=== PATIENT | female | born 1940 | race Caucasian/White ===

== ENCOUNTER 2016-08-29 06:03 | Emergency (ER) | payer MEDICARE, OTHER ==
[~2016-08-29 06:03] MED LIST: BACT800T5 PO; CLIN1CAP6 PO; ESCI20TA PO; ESTR.625 PO; HYDR-3580 PO; LORA1TAB PO; NEXI40CA PO; POTA10IN2 PO; ROBA750T3 PO; TELM1TAB56 PO; VITA200017 PO
--- NOTE | 2016-08-29 06:13 | PD ---
HPI Chief Complaint: respiratory Time Seen by Provider: 06:07 Travel History International Travel<30 days: No Contact w/Intl Traveler<30days: No Traveled to known affect area: No History of Present Illness HPI 75-year-old female complains of fever and coughing. Patient states that the cough started about week ago. Patient states that she has been running fever for past few days. Patient states the cough is productive. Patient denies any chest pain. Patient states that she has shortness of breath. Patient denies abdominal pain. Patient denies any nausea vomiting diarrhea. Patient states that she used her 's albuterol treatment without Cough Relief. PFSH Past Medical History Arthritis: Yes (RA) Asthma: No Blood Disorders: No Anxiety: Yes Depression: Yes Heart Rhythm Problems: No Cardiovascular Problems: Yes High Cholesterol: No Chemotherapy: No Chest Pain: No Congestive Heart Failure: No COPD: No Cerebrovascular Accident: No Diabetes: No Diminished Hearing: No Fibromyalgia: Yes Gastrointestinal Disorders: Yes (NAUSEA AND VOMITING TIMES ONE DAY) GERD: Yes Glaucoma: No Genitourinary: No Headaches: Yes Hepatitis: No Hiatal Hernia: No Hypertension: Yes Immune Disorder: No Implanted Vascular Access Dvce: No Musculoskeletal: Yes (FIBROMYALGIA, OSTEOPOROSIS) Neurologic: Yes Psychiatric: Yes Reproductive: No Migraines: Yes Radiation Therapy: No Renal Failure: No Seizures: No Sleep Apnea: No Thyroid Disease: No Ulcer: No Past Surgical History Abdominal Surgery: Yes (HYSTERECTOMY CHOLESTECTOMY) Appendectomy: Yes Body Medical Devices: FIBERMYALGIA, OSTEOPOROSIS Cardiac Surgery: No Cholecystectomy: Yes Eye Surgery: Yes (BILATERAL EYES cataract surgery) Genitourinary Surgery: No Gynecologic Surgery: Yes (bladder tuck) Hysterectomy: Yes Neurologic Surgery: No Pacemaker: No Thoracic Surgery: No Other Surgery: Yes Social History Alcohol Use: No Tobacco Use: No Substance Use: No Allergies-Medications (Allergen,Severity, Reaction): Coded Allergies: Penicillin (Verified Allergy, Severe, HIVES, 04/27/16) Reported Meds & Prescriptions Reported Meds & Active Scripts Active Robaxin-750 (Methocarbamol) 750 Mg Tab 750 Mg PO QID PRN FOR PAIN Clindamycin Hcl (Clindamycin HCl) 300 Mg Cap 300 Mg PO Q6HR 7 Days Bactrim DS (Sulfamethoxazole-Trimethoprim DS) 1 Tab Tab 1 Tab PO Q12HR 7 Days Reported Vitamin D3 Super Strength (Cholecalciferol) 2 000 Tab 5,000 Unit PO DAILY Hydrocodone/Acetaminophen 7.5 mg/325 mg 1 Tab 1 Tab PO Q6H Escitalopram Oxalate 20 Mg Tab 20 Mg PO DAILY Micardis (Telmisartan) 80 Mg Tab 80 Mg PO DAILY Lorazepam 1 Mg Tab 1 Mg PO BID Nexium (Esomeprazole Magnesium) 40 Mg Cap 40 Mg PO DAILY Premarin (Estrogens Conjugated) 0.625 Mg Tab 0.625 Mg PO DAILY Potassium Chloride ER 10 meq (Potassium Chloride) 10 Meq Cap 10 Meq PO DAILY Review of Systems General / Constitutional: Positive: Fever Eyes: No: Visual changes HENT: No: Headaches Cardiovascular: No: Chest Pain or Discomfort Respiratory: Positive: Cough, No: Shortness of Breath Gastrointestinal: No: Abdominal Pain Genitourinary: No: Dysuria Musculoskeletal: No: Pain Skin: No Rash Neurologic: No: Weakness Psychiatric: No: Depression Endocrine: No: Polydipsia Hematologic/Lymphatic: No: Easy Bruising Physical Exam Narrative GENERAL: Well-nourished, well-developed patient. SKIN: Warm and dry. HEAD: Normocephalic. EYES: No scleral icterus. No injection or drainage. NECK: Supple, trachea midline. No JVD or lymphadenopathy. CARDIOVASCULAR: Mild tachycardia rate and rhythm without murmurs, gallops, or rubs. RESPIRATORY: Breath sounds equal bilaterally. No accessory muscle use. Few rhonchi at the bases. GASTROINTESTINAL: Abdomen soft, non-tender, nondistended. MUSCULOSKELETAL: No cyanosis, or edema. BACK: Nontender without obvious deformity. No CVA tenderness. Neurologic exam normal. MDM Medical Decision Making Medical Screen Exam Complete: Yes Emergency Medical Condition: Yes Differential Diagnosis Differential diagnosis including viral syndrome, bronchitis, pneumonia, PE, pneumothorax, CHF. Narrative Course 75-year-old female with fever persistent cough. Deacon Doe MD Aug 29, 2016 06:13
[2016-08-29 06:15] VITALS: BP 105/54; PULSE 115; RESP 16; TEMP 98.5; O2SAT 98
[2016-08-29 06:18] VITALS: PULSE 117; RESP 18; O2SAT 98
[2016-08-29] MEDS ORDERED: LORA1TAB12 PO (06:38)
[2016-08-29] MEDS ORDERED: NEXI40CA PO (06:38)
[2016-08-29] MEDS ORDERED: POTA8TAB PO (06:38)
[2016-08-29 06:42] LABS: AUTOMATED NEUTROPHIL # 8.7 TH/MM3 (1.8-7.7); BASOPHIL # 0.1 TH/MM3 (0-0.2); BASOPHIL % 0.7 % (0.0-2.0); EOSINOPHIL # 0.5 TH/MM3 (0-0.4); EOSINOPHIL % 3.3 % (0.0-4.0); HEMATOCRIT 35.8 % (35.0-46.0); HEMO FLAGS DIFF FINAL; LYMPH % 25.1 % (9.0-44.0); LYMPHOCYTE # 3.5 TH/MM3 (1.0-4.8); MEAN CELL VOLUME 81.8 FL (80.0-100.0); MEAN CORPUSCULAR HEMOGLOBIN 27.4 PG (27.0-34.0); MEAN CORPUSCULAR HGB CONC 33.5 % (32.0-36.0); MONO % 9.2 % (0.0-8.0); NEUT % 61.7 % (16.0-70.0); PLATELET COUNT 247 TH/MM3 (150-450); RED BLOOD COUNT 4.38 MIL/MM3 (4.00-5.30); RED CELL DISTRIBUTION WIDTH 13.3 % (11.6-17.2); WHITE BLOOD COUNT 14.1 TH/MM3 (4.0-11.0)
[2016-08-29] MEDS ORDERED: RESP: ALBUTEROL 2.5 MG/IPRATROPIUM 0.5 MG NEB (SCH) INH ONE (07:00)
--- NOTE | 2016-08-29 07:06 | RADRPT ---
EXAM DATE/TIME: 08/29/2016 06:36 [facility] COMPARISON: CHEST SINGLE AP, November 24, 2015, 1:00. INDICATIONS : Fever and cough. MEDICAL HISTORY : Hypertension. SURGICAL HISTORY : None. ENCOUNTER: Initial ACUITY: 1 day PAIN SCORE: 0/10 LOCATION: Bilateral chest FINDINGS: The heart and mediastinal structures are normal. The pulmonary vascular pattern is normal. The lungs are clear. CONCLUSION: No acute cardiopulmonary disease. Efrain Farnsworth MD on August 29, 2016 at 7:03 Board Certified Radiologist. This report was verified electronically.
[2016-08-29 07:11] LABS: ALKALINE PHOSPHATASE 102 U/L (45-117); ALT (GPT) 19 U/L (10-53); ANION GAP 13 MEQ/L (5-15); AST (GOT) 21 U/L (15-37); BICARBONATE 22.1 MEQ/L (21.0-32.0); CHLORIDE 103 MEQ/L (98-107); GLOMERULAR FILTRATION RATE 23 ML/MIN (>89); POTASSIUM 4.4 MEQ/L (3.5-5.1); SODIUM (NA) 138 MEQ/L (136-145); TOTAL BILIRUBIN ADULT 0.3 MG/DL (0.2-1.0)
[2016-08-29 07:13] LABS: BLOOD UREA NITROGEN 32 MG/DL (7-18)
[2016-08-29] MEDS: RESP: ALBUTEROL 2.5 MG/3 ML NEB (SCH) INH (07:26)
[2016-08-29] MEDS ORDERED: guaiFENesin/CODEINE SYRUP 200 MG/20 MG/10 ML CUP PO ONE (07:30)
[2016-08-29 08:01] VITALS: BP 105/56; PULSE 102; RESP 20; O2SAT 98
[2016-08-29] MEDS ORDERED: CLAR10CA3 PO (08:27)
[2016-08-29] MEDS ORDERED: GUAI100S5 PO (08:27)
[2016-08-29] MEDS ORDERED: ZITHTAB PO (08:27)
--- NOTE | 2016-08-29 08:33 | PD ---
Physical Exam Date Seen by Provider: Aug 29, 2016 Time Seen by Provider: 08:15 Narrative The patient was signed out to me by Dr. Doe at 7 AM. I was the physician replacing Dr. Doe. The patient had labs and x-rays pending. Chest x-ray shows no evidence of acute process. Labs showed white count of 14,000 with no left shift. Her creatinine was 2.1 which is close to her baseline. The patient was given nebulizer treatments 3 first with DuoNeb. She is also given 5 cc of cough syrup with codeine. On reexamination, patient's lung sounds are clear. She does have some mild rhonchi in the upper airways. Data Data Last Documented VS Vital Signs Date Time Temp Pulse Resp B/P Pulse Ox O2 Delivery O2 Flow Rate FiO2 08/29/16 06:18 117 18 98 08/29/16 06:15 98.5 105/54 Orders Complete Blood Count With Diff (08/29/16 06:07) Comprehensive Metabolic Panel (08/29/16 06:07) Blood Culture (08/29/16 06:07) Urinalysis - C+S If Indicated (08/29/16 06:07) Influenzae A/B Antigen (08/29/16 06:07) Chest, Single Ap (08/29/16 06:07) Iv Access Insert/Monitor (08/29/16 06:07) Ecg Monitoring (08/29/16 06:07) Oximetry (08/29/16 06:07) Albuterol-Ipratropium Neb (Duoneb Neb) (08/29/16 07:00) Albuterol Neb (Albuterol Neb) (08/29/16 07:00) Guaifen-Cod 200-20 Mg/10ml Liq (Robituss (08/29/16 07:30) Labs Laboratory Tests Test 08/29/16 06:23 White Blood Count 14.1 TH/MM3 Red Blood Count 4.38 MIL/MM3 Hemoglobin 12.0 GM/DL Hematocrit 35.8 % Mean Corpuscular Volume 81.8 FL Mean Corpuscular Hemoglobin 27.4 PG Mean Corpuscular Hemoglobin 33.5 % Concent Red Cell Distribution Width 13.3 % Platelet Count 247 TH/MM3 Mean Platelet Volume 9.3 FL Neutrophils (%) (Auto) 61.7 % Lymphocytes (%) (Auto) 25.1 % Monocytes (%) (Auto) 9.2 % Eosinophils (%) (Auto) 3.3 % Basophils (%) (Auto) 0.7 % Neutrophils # (Auto) 8.7 TH/MM3 Lymphocytes # (Auto) 3.5 TH/MM3 Monocytes # (Auto) 1.3 TH/MM3 Eosinophils # (Auto) 0.5 TH/MM3 Basophils # (Auto) 0.1 TH/MM3 CBC Comment DIFF FINAL Differential Comment Sodium Level 138 MEQ/L Potassium Level 4.4 MEQ/L Chloride Level 103 MEQ/L Carbon Dioxide Level 22.1 MEQ/L Anion Gap 13 MEQ/L Blood Urea Nitrogen 32 MG/DL Creatinine 2.11 MG/DL Estimat Glomerular Filtration 23 ML/MIN Rate Random Glucose 104 MG/DL Calcium Level 8.8 MG/DL Total Bilirubin 0.3 MG/DL Aspartate Amino Transf 21 U/L (AST/SGOT) Alanine Aminotransferase 19 U/L (ALT/SGPT) Alkaline Phosphatase 102 U/L Total Protein 7.4 GM/DL Albumin 3.2 GM/DL [facility] Medical Record Reviewed: Yes Supervised Visit with DIONI: No Narrative Course 75-year-old female who presents with cough 2 days. Patient is afebrile. I discussed that this is likely bronchitis however given her elevated white count 14,000, we will treat her with a Z-Abelardo. We also gave her a prescription for Claritin as she has postnasal drip. I've written her prescription for guaifenesin with codeine. Diagnosis Primary Impression: Bronchitis Additional Impression: History of hypertension Patient Instructions: Narcotic given in the ED Med/Other Pt SpecificInfo: Prescription(s) given Scripts Loratadine (Claritin)10 Mg Cap10 Mg PO DAILY #20 CAP Ref 0 Prov:Ulises Allen MD 08/29/16 Guaifenesin-Codeine Liq 100-10 Mg/5 Ml Soln5 Ml PO Q6H PRN (COUGH) #1 BOTTLE Ref 0 Prov:Ulises Allen MD 08/29/16 Azithromycin (Zithromax Z-Abelardo)250 Mg Lcae534 Mg PO DIRECTED #1 DSPK Ref 0 500 MG (2 tabs) day 1, then 1 tab days 2-5. Prov:Ulises Allen MD 08/29/16 Disposition: 01 DISCHARGE HOME Condition: Stable Ulises Allen MD Aug 29, 2016 08:33
[2016-08-29 09:18] VITALS: BP 107/51; TEMP 98.6
== END 2016-08-29 09:20 | disposition home or self-care (01) ==
LOC: NEPC 06:03
DX: J40 Bronchitis, not specified as acute or chronic (principal); I10 Essential (primary) hypertension; R09.82 Postnasal drip; Z87.39 Personal history of other diseases of the musculoskeletal system and connective tissue; Z86.59 Personal history of other mental and behavioral disorders; Z86.79 Personal history of other diseases of the circulatory system; Z87.19 Personal history of other diseases of the digestive system; Z86.69 Personal history of other diseases of the nervous system and sense organs
CPT/HCPCS: 71010; 80053; 85025; 87040; 87804; 94640; 94664; 99284; J7613

== ENCOUNTER → 2016-11-10 | Outpatient (CLI) | payer MEDICARE, OTHER ==
[~2016-11-10] MED LIST changes: -BACT800T5 PO; +CLAR10CA3 PO; -CLIN1CAP6 PO; -ESCI20TA PO; -ESTR.625 PO; +GUAI100S5 PO; -HYDR-3580 PO; -LORA1TAB PO; +LORA1TAB12 PO; -POTA10IN2 PO; +POTA8TAB PO; -ROBA750T3 PO; -TELM1TAB56 PO; -VITA200017 PO; +ZITHTAB PO
[2016-11-10 10:29] LABS: AUTOMATED NEUTROPHIL # 4.5 TH/MM3 (1.8-7.7); BASOPHIL # 0.1 TH/MM3 (0-0.2); BASOPHIL % 1.2 % (0.0-2.0); EOSINOPHIL # 0.5 TH/MM3 (0-0.4); EOSINOPHIL % 5.2 % (0.0-4.0); HEMATOCRIT 36.9 % (35.0-46.0); HEMO FLAGS DIFF FINAL; LYMPH % 42.4 % (9.0-44.0); LYMPHOCYTE # 4.3 TH/MM3 (1.0-4.8); MEAN CELL VOLUME 82.9 FL (80.0-100.0); MEAN CORPUSCULAR HEMOGLOBIN 26.9 PG (27.0-34.0); MEAN CORPUSCULAR HGB CONC 32.5 % (32.0-36.0); MONO % 6.8 % (0.0-8.0); NEUT % 44.4 % (16.0-70.0); PLATELET COUNT 203 TH/MM3 (150-450); RED BLOOD COUNT 4.45 MIL/MM3 (4.00-5.30); RED CELL DISTRIBUTION WIDTH 14.1 % (11.6-17.2); WHITE BLOOD COUNT 10.1 TH/MM3 (4.0-11.0)
[2016-11-10 10:54] LABS: ALT (GPT) 18 U/L (10-53); ANION GAP 8 MEQ/L (5-15); AST (GOT) 16 U/L (15-37); BICARBONATE 27.9 MEQ/L (21.0-32.0); BLOOD UREA NITROGEN 26 MG/DL (7-18); CHLORIDE 103 MEQ/L (98-107); GLOMERULAR FILTRATION RATE 37 ML/MIN (>89); GLUCOSE,FASTING 94 MG/DL (74-99); SODIUM (NA) 139 MEQ/L (136-145)
[2016-11-10 11:04] LABS: ALKALINE PHOSPHATASE 78 U/L (45-117); LDL CHOLESTEROL 84 MG/DL (0-99); TOTAL BILIRUBIN ADULT 0.2 MG/DL (0.2-1.0)
[2016-11-10 11:11] LABS: BACTERIA, URINE RARE /hpf; BLOOD, URINE NEG (NEG); GLUCOSE,URINE NEG (NEG); KETONE, URINE NEG (NEG); MUCUS URINE FEW /lpf (OCC); NITRITE,URINE NEG (NEG); SQUAMOUS EPITHELIAL CELL URINE 2 /hpf (0-5); URINE COLOR YELLOW (YELLW/STRAW)
== END ==
LOC: PLAB 08:19
PROVIDERS: ATTEND General Practice
DX: I10 Essential (primary) hypertension (principal)
CPT/HCPCS: 36415; 80053; 80061; 81001; 84443; 85025

== ENCOUNTER 2017-03-14 14:10 | Emergency (ER) | payer MEDICARE, OTHER ==
[~2017-03-14] VITALS: Ht 157.5 cm; Wt 70.0 kg
[2017-03-14 14:12] VITALS: BP 147/80; PULSE 99; RESP 16; TEMP 98.4; O2SAT 98
--- NOTE | 2017-03-14 15:15 | PD ---
HPI Chief Complaint: ENT Complaint Time Seen by Provider: 15:09 Travel History International Travel<30 days: No Contact w/Intl Traveler<30days: No Traveled to known affect area: No History of Present Illness HPI 76-year-old female presents to emergency department for evaluation of cough and chest congestion, left-sided throat and ear pain. Pain with swallowing. Symptoms worsening over the last 3-4 days. Denies any fever or chills. No chest pain. Mild nausea without vomiting. Episode of diarrhea. Patient states her ear pain is radiating to the left side of her head. Denies any focal deficits or weakness. Has no other symptoms to report. PFSH Past Medical History Hx Anticoagulant Therapy: No Arthritis: Yes (RA) Asthma: No Blood Disorders: No Anxiety: Yes Depression: Yes Heart Rhythm Problems: No Cardiovascular Problems: No High Cholesterol: No Chemotherapy: No Chest Pain: No Congestive Heart Failure: No COPD: No Cerebrovascular Accident: No Diabetes: No Diminished Hearing: No Fibromyalgia: Yes Gastrointestinal Disorders: Yes (NAUSEA AND VOMITING TIMES ONE DAY) GERD: Yes Glaucoma: No Genitourinary: No Headaches: Yes Hepatitis: No Hiatal Hernia: No Hypertension: Yes Immune Disorder: No Implanted Vascular Access Dvce: No Musculoskeletal: Yes (FIBROMYALGIA, OSTEOPOROSIS) Neurologic: Yes Psychiatric: Yes Reproductive: No Respiratory: Yes (ASTHMA) Migraines: Yes Radiation Therapy: No Renal Failure: No Seizures: No Sleep Apnea: No Thyroid Disease: No Ulcer: No ?: Not Past Surgical History Abdominal Surgery: Yes (HYSTERECTOMY CHOLESTECTOMY) Appendectomy: Yes Body Medical Devices: FIBERMYALGIA, OSTEOPOROSIS Cardiac Surgery: No Cholecystectomy: Yes Eye Surgery: Yes (BILATERAL EYES cataract surgery) Genitourinary Surgery: No Gynecologic Surgery: Yes (bladder tuck) Hysterectomy: Yes Neurologic Surgery: No Pacemaker: No Thoracic Surgery: No Other Surgery: Yes Social History Alcohol Use: No Tobacco Use: No Substance Use: No Allergies-Medications (Allergen,Severity, Reaction): Coded Allergies: penicillin G (Verified Allergy, Severe, HIVES, 03/14/17) Reported Meds & Prescriptions Reported Meds & Active Scripts Active Medrol Dosepak (Methylprednisolone) 4 Mg Dspk 4 Mg PO DIRECTED Per Pharmacist direction Doxycycline Hyclate 100 Mg Cap 100 Mg PO BID Claritin (Loratadine) 10 Mg Cap 10 Mg PO DAILY Reported Lorazepam 1 Mg Tab 1 Mg PO BID PRN Potassium Chloride ER (Potassium Chloride) 8 Meq Tab 8 Meq PO DAILY Nexium (Esomeprazole DR) 40 Mg Capdr 40 Mg PO DAILY Review of Systems Except as stated in HPI: all other systems reviewed are Neg Physical Exam Narrative GENERAL: Well-nourished, well-developed female patient in no acute distress SKIN: Focused skin assessment warm/dry. HEAD: Normocephalic. Atraumatic no mastoid tenderness EARS: Bilateral pinnae and external canals appear within normal limits. Left tympanic membranes is dull without erythema, dullness or perforation. Right tympanic membrane is within normal limits. EYES: No scleral icterus. No injection or drainage. ENT: Mucosa pink and moist. Pharynx with erythema without exudate.. No uvular edema. No uvular, palatal, or tonsillar deviation. Airway patent. Nasal turbinates inflamed without nasal blood, purulent drainage or septal hematoma. NECK: Supple, trachea midline. Left anterior cervical lymphadenopathy. CARDIOVASCULAR: Regular rate and rhythm without murmurs, gallops, or rubs. RESPIRATORY: Breath sounds diminished, coarse equal bilaterally. No accessory muscle use. GASTROINTESTINAL: Abdomen soft, non-tender, nondistended. No rebound tenderness. No guarding. MUSCULOSKELETAL: No cyanosis, or edema. BACK: Nontender without obvious deformity. No CVA tenderness. Data Data Last Documented VS Vital Signs Date Time Temp Pulse Resp B/P (MAP) Pulse Ox O2 Delivery O2 Flow Rate FiO2 03/14/17 17:43 85 15 94 03/14/17 15:41 21 03/14/17 14:12 98.4 Orders Orders Dexamethasone Inj (Decadron Inj) (03/14/17 15:30) Chest, Single Ap (03/14/17 ) Albuterol-Ipratropium Neb (Duoneb Neb) (03/14/17 15:30) MDM Medical Decision Making Medical Screen Exam Complete: Yes Emergency Medical Condition: Yes Medical Record Reviewed: Yes Differential Diagnosis Viral syndrome versus sinusitis versus pharyngitis versus otitis media Narrative Course 76 year-old female presents to emergency department for evaluation. Patient appears without distress. Chest x-rays without acute cardiopulmonary disease. History and exam are consistent with a sinusitis and bronchitis. Patient was given Decadron here in the emergency department. Upon reassessment, she verbalizes improvement in her symptoms but not complete resolution. Patient will be discharged to follow-up her primary care provider. She agrees to return immediately with any acute worsening symptoms. Diagnosis Primary Impression: Sinusitis Qualified Codes: J01.00 - Acute maxillary sinusitis, unspecified Additional Impression: Bronchitis Referrals: Primary Care Physician Patient Instructions: Acute Bronchitis (ED), General Instructions, Sinusitis ( ED) Additional Instructions: Humidified air may help to alleviate symptoms Zkcw-[id number] antihistamine such as Benadryl or Zyrtec as directed on the package may also help to alleviate her symptoms Follow-up with a primary care provider Return immediately with any acute worsening of symptoms Med/Other Pt SpecificInfo: Prescription(s) given Scripts Methylprednisolone Dosepak (Medrol Dosepak) 4 Mg Dspk 4 MG PO DIRECTED, #1 DSPK 0 Refills Per Pharmacist direction Prov: Casandra Pichardo 03/14/17 Doxycycline Hyclate (Doxycycline Hyclate) 100 Mg Cap 100 MG PO BID for Infection, #20 CAP 0 Refills Prov: Casandra Pichardo 03/14/17 Disposition: 01 DISCHARGE HOME Condition: Stable Casandra Pichardo Mar 14, 2017 15:14
[2017-03-14] MEDS ORDERED: DEXAMETHASONE SOD PHOS 20 MG/5 ML VIAL IM ONE (15:30)
[2017-03-14] MEDS ORDERED: RESP: ALBUTEROL 2.5 MG/IPRATROPIUM 0.5 MG NEB (SCH) NEB ONE (15:30)
[2017-03-14 15:41] VITALS: O2SAT 95
--- NOTE | 2017-03-14 16:18 | RADRPT ---
EXAM DATE/TIME: 03/14/2017 15:31 [facility] COMPARISON: CHEST SINGLE AP, August 29, 2016, 6:36. INDICATIONS : Chest pain and shortness of breath. MEDICAL HISTORY : Hypertension. SURGICAL HISTORY : Cholecystectomy. Hysterectomy. ENCOUNTER: Initial ACUITY: 1 day PAIN SCORE: 6/10 LOCATION: Bilateral chest FINDINGS: A single view of the chest demonstrates the lungs to be symmetrically aerated without evidence of mas s, infiltrate or effusion. The cardiomediastinal contours are unremarkable. Osseous structures are intact. CONCLUSION: No acute disease. Efrain Farnsworth MD on March 14, 2017 at 16:16 Board Certified Radiologist. This report was verified electronically.
[2017-03-14] MEDS ORDERED: MEDR4PAK PO (16:33)
[2017-03-14] MEDS ORDERED: DOXY100C PO (16:33)
== END 2017-03-14 17:45 | disposition home or self-care (01) ==
LOC: NEPD 14:10
DX: J40 Bronchitis, not specified as acute or chronic (principal); R11.0 Nausea; R19.7 Diarrhea, unspecified; M06.9 Rheumatoid arthritis, unspecified; F41.9 Anxiety disorder, unspecified; F32.9 Major depressive disorder, single episode, unspecified; M79.7 Fibromyalgia; K21.9 Gastro-esophageal reflux disease without esophagitis; I10 Essential (primary) hypertension
CPT/HCPCS: 71010; 94664; 96372; 99284; J1100

== ENCOUNTER 2017-03-29 10:44 | Emergency (ER) | payer MEDICARE, OTHER ==
[~2017-03-29] VITALS: Ht 157.5 cm; Wt 72.5 kg
[~2017-03-29 10:44] MED LIST changes: +DOXY100C PO; -GUAI100S5 PO; +MEDR4PAK PO; -ZITHTAB PO
[2017-03-29 10:45] VITALS: BP 162/84; PULSE 83; RESP 18; TEMP 98.5; O2SAT 94
[2017-03-29] MEDS ORDERED: POTA-243 PO (11:02)
[2017-03-29] MEDS ORDERED: ESTR.625 PO (11:02)
[2017-03-29] MEDS ORDERED: LORA1TAB12 PO (11:02)
[2017-03-29] MEDS ORDERED: MECL12.574 PO (11:02)
[2017-03-29] MEDS ORDERED: ESCI20TA PO (11:02)
[2017-03-29] MEDS ORDERED: MICA80TA2 PO (11:02)
[2017-03-29] MEDS ORDERED: NEXI40CA PO (11:02)
[2017-03-29] MEDS ORDERED: SODIUM CHLOR 0.9% 1000 ML INJ 1,000 ML IV ONE (11:05)
[2017-03-29 11:07] VITALS: BP 150/80; PULSE 76; RESP 20; O2SAT 94
--- NOTE | 2017-03-29 11:09 | PD ---
HPI Chief Complaint: Headache Time Seen by Provider: 10:56 Travel History International Travel<30 days: No Contact w/Intl Traveler<30days: No History of Present Illness HPI The patient is a 76-year-old female who presents to the emergency department via private vehicle for headache after a fall. The patient states she has a history of fibromyalgia with multiple falls and is scheduled to see a neurologist in several days, Dr. Mcmanus. The patient states she fell 2 days ago struck the left aspect of her head, then fell yesterday and struck the left aspect of her head against a cabinet. She denies any loss of consciousness, nausea, vomiting, or focal deficits. She does complain of a left-sided headache. She denies taking any anticoagulants including aspirin. The patient called her primary physician earlier today, Dr. Dheeraj Goldman, who referred her to the emergency department for CT the brain to rule out a "blood clot "in the brain. She denies any cavity chest pain, shortness breath, or abdominal pain. Symptoms are moderate, exacerbated after falling, and there are no current alleviating factors. PFSH Past Medical History Hx Anticoagulant Therapy: No Arthritis: Yes (RA) Asthma: No Blood Disorders: No Anxiety: Yes Depression: Yes Heart Rhythm Problems: No Cardiovascular Problems: No High Cholesterol: No Chemotherapy: No Chest Pain: No Congestive Heart Failure: No COPD: No Cerebrovascular Accident: No Diabetes: No Diminished Hearing: No Fibromyalgia: Yes Gastrointestinal Disorders: Yes (NAUSEA AND VOMITING TIMES ONE DAY) GERD: Yes Glaucoma: No Genitourinary: No Headaches: Yes Hepatitis: No Hiatal Hernia: No Hypertension: Yes Immune Disorder: No Implanted Vascular Access Dvce: No Musculoskeletal: Yes (FIBROMYALGIA, OSTEOPOROSIS) Neurologic: Yes Psychiatric: Yes Reproductive: No Respiratory: Yes (ASTHMA) Migraines: Yes Radiation Therapy: No Renal Failure: No Seizures: No Sleep Apnea: No Thyroid Disease: No Ulcer: No Past Surgical History Abdominal Surgery: Yes (HYSTERECTOMY CHOLESTECTOMY) Appendectomy: Yes Body Medical Devices: FIBERMYALGIA, OSTEOPOROSIS Cardiac Surgery: No Cholecystectomy: Yes Eye Surgery: Yes (BILATERAL EYES cataract surgery) Genitourinary Surgery: No Gynecologic Surgery: Yes (bladder tuck) Hysterectomy: Yes Neurologic Surgery: No Pacemaker: No Thoracic Surgery: No Other Surgery: Yes Social History Alcohol Use: No Tobacco Use: No Substance Use: No Allergies-Medications (Allergen,Severity, Reaction): Coded Allergies: penicillin G (Verified Allergy, Severe, HIVES, 03/29/17) Reported Meds & Prescriptions Reported Meds & Active Scripts Active Reported Nexium (Esomeprazole DR) 40 Mg Capdr 40 Mg PO BID Klor-Con 10 (Potassium Chloride) 10 Meq Tab 10 Meq PO DAILY Lorazepam 1 Mg Tab 1 Mg PO DAILY PRN Premarin (Estrogens Conjugated) 0.625 Mg Tab 0.625 Mg PO DAILY Meclizine (Meclizine HCl) 12.5 Mg Tab 12.5 Mg PO DIRECTED PRN Escitalopram (Escitalopram Oxalate) 20 Mg Tab 20 Mg PO DAILY Micardis Hct (Telmisartan-Hydrochlorothiazide) 80-12.5 Mg Tab 1 Tab PO DAILY Lorazepam 1 Mg Tab 1 Mg PO BID PRN Review of Systems Except as stated in HPI: all other systems reviewed are Neg HENT: Positive: Headaches, No: Neck Pain Cardiovascular: No: Chest Pain or Discomfort Respiratory: No: Shortness of Breath Gastrointestinal: No: Nausea, Vomiting, Abdominal Pain Musculoskeletal: Positive: Weakness Neurologic: Positive: Dizziness, Headache, No: Paresthesia, Sensory Disturbance Physical Exam Narrative GENERAL: Awake, alert, pleasant 76-year-old female who appears her stated age and is in no acute respiratory distress. SKIN: Focused skin assessment warm/dry. HEAD: Atraumatic. Normocephalic. No visible Cifelli hematomas. EYES: Pupils equal and round. No scleral icterus. No injection or drainage. ENT: No nasal bleeding or discharge. Mucous membranes pink and moist. TMs are translucent and EACs are clear. NECK: Trachea midline. No JVD. CARDIOVASCULAR: Regular rate and rhythm. No murmur appreciated. RESPIRATORY: No accessory muscle use. Clear to auscultation. Breath sounds equal bilaterally. GASTROINTESTINAL: Abdomen soft, non-tender, nondistended. MUSCULOSKELETAL: No obvious deformities. No clubbing. No cyanosis. No edema. Back: No visible ecchymosis. No tenderness over the thoracic or lumbar vertebrae. NEUROLOGICAL: Awake and alert. No obvious cranial nerve deficits. Motor grossly within normal limits. Normal speech. Nonfocal. PSYCHIATRIC: Appropriate mood and affect; insight and judgment normal. Data Data Last Documented VS Vital Signs Date Time Temp Pulse Resp B/P (MAP) Pulse Ox O2 Delivery O2 Flow Rate FiO2 03/29/17 11:46 93 21 03/29/17 11:21 Room Air 03/29/17 11:09 81 20 03/29/17 10:[address] Brain W/O Iv Contrast(Rout) (03/29/17 11:05) Ecg Monitoring (03/29/17 11:05) Iv Access Insert/Monitor (03/29/17 11:05) Oximetry (03/29/17 11:05) Sodium Chloride 0.9% Flush (Ns Flush) (03/29/17 11:15) Prochlorperazine Inj (Compazine Inj) (03/29/17 11:15) Diphenhydramine Inj (Benadryl Inj) (03/29/17 11:15) Sodium Chlor 0.9% 1000 Ml Inj (Ns 1000 M (03/29/17 11:05) Morphine Inj (Morphine Inj) (03/29/17 11:15) Albuterol-Ipratropium Neb (Duoneb Neb) (03/29/17 11:15) Ketorolac Inj (Toradol Inj) (03/29/17 12:15) MDM Medical Decision Making Medical Screen Exam Complete: Yes Emergency Medical Condition: Yes Medical Record Reviewed: Yes Interpretation(s) Last Impressions Head CT 03/29/17 1105 Signed Impressions: Service Date/Time: Monday, March 29, 2017 11:24 - CONCLUSION: Negative for an acute process. Colt Norris MD FACR Differential Diagnosis Differential diagnosis includes closed head injury, subdural hemorrhage, hematoma, contusion, subarachnoid hemorrhage, intracranial hemorrhage, labyrinthitis, benign positional vertigo, CVA. Narrative Course IV was established and the patient was placed on cardiac telemetry monitoring and continuous pulse oximetry monitoring. The patient was research nurse practitioner morphine, Compazine, Benadryl, and IV fluids. CT of the brain was obtained. CT the brain was negative. The patient was reassessed at 12:15 PM states her headache is worse with the morphine and Compazine. Therefore, patient was administered Toradol [address] of the brain was negative. The patient will be provided a copy of her CT results at discharge, is advised to follow-up with her neurologist and primary physician as scheduled. The patient will be discharged home on Fioricet. The patient is nonfocal on exam. She is stable for outpatient follow-up. Diagnosis Primary Impression: Closed head injury Qualified Codes: S09.90XA - Unspecified injury of head, initial encounter Additional Impression: Cephalgia Qualified Codes: R51 - Headache Additional Instructions: Please provide the patient a copy of her CT results at discharge. Follow-up with your primary physician. Return if symptoms worsen or progress. Medications as directed. Med/Other Pt SpecificInfo: Prescription(s) given Scripts Psmldeacww-Emiutznxqbjji-Zslyxmtl (Fioricet) 50-300-40 Mg Cap 1 CAP PO Q4H Y for HEADACHE, #12 CAP 0 Refills Prov: Curtis Miller MD 03/29/17 Condition: Stable Curtis Miller MD Mar 29, 2017 11:09
[2017-03-29] MEDS ORDERED: diphenhydrAMINE HCL 50 MG/ML VIAL IVP ONE (11:15)
[2017-03-29] MEDS ORDERED: SODIUM CHLORIDE 0.9% FLUSH 10 ML FLUSH IVF PRN (11:15)
[2017-03-29] MEDS ORDERED: RESP: ALBUTEROL 2.5 MG/IPRATROPIUM 0.5 MG NEB (SCH) NEB ONE (11:15)
[2017-03-29] MEDS ORDERED: MORPHINE SULFATE 4 MG/ML INJ IV PUSH ONE (11:15)
[2017-03-29] MEDS ORDERED: PROCHLORPERAZINE INJ 10 MG/2 ML VIAL IVP ONE (11:15)
[2017-03-29 11:21] VITALS: O2SAT 94
--- NOTE | 2017-03-29 11:36 | RADRPT ---
EXAM DATE/TIME: 03/29/2017 11:24 [facility] COMPARISON: No previous studies available for comparison. INDICATIONS : Fell and hit left head. Cephalgia. RADIATION DOSE: 29.89 CTDIvol (mGy) MEDICAL HISTORY : Hypertension. SURGICAL HISTORY : Cholecystectomy. Hysterectomy.Appendectomy. ENCOUNTER: Initial ACUITY: 2 days PAIN SCALE: 5/10 LOCATION: Bilateral chest TECHNIQUE: Multiple contiguous axial images were obtained of the head. Using automated exposure control and adj ustment of the mA and/or kV according to patient size, radiation dose was kept as low as reasonably a chievable to obtain optimal diagnostic quality images. DICOM format image data is available electro nically for review and comparison. FINDINGS: CEREBRUM: The ventricles are normal for age. No evidence of midline shift, mass lesion, hemorrhage or acute in farction. No extra-axial fluid collections are seen. POSTERIOR FOSSA: The cerebellum and brainstem are intact. The 4th ventricle is midline. The cerebellopontine angle i s unremarkable. EXTRACRANIAL: The visualized portion of the orbits is intact. SKULL: The calvaria is intact. No evidence of skull fracture. CONCLUSION: Negative for an acute process. Colt Norris MD FACR on March 29, 2017 at 11:34 Board Certified Radiologist. This report was verified electronically.
[2017-03-29 11:46] VITALS: O2SAT 93
[2017-03-29] MEDS ORDERED: KETOROLAC TROMETHAMINE 30 MG/ML (IVP) VIAL IV PUSH ONE (12:15)
[2017-03-29] MEDS ORDERED: BUTA1CAP PO (12:51)
[2017-03-29 13:25] VITALS: BP 159/62
== END 2017-03-29 13:27 | disposition home or self-care (01) ==
LOC: NEPD 10:44
DX: S09.90XA Unspecified injury of head, initial encounter (principal); R51 Headache; R53.1 Weakness; R42 Dizziness and giddiness; M79.7 Fibromyalgia; M06.9 Rheumatoid arthritis, unspecified; I10 Essential (primary) hypertension; M81.0 Age-related osteoporosis without current pathological fracture; W18.00XA Striking against unspecified object with subsequent fall, initial encounter
CPT/HCPCS: 70450; 94664; 96361; 96374; 96375; 99285; J0780; J1200; J1885; J2270; J7030

== ENCOUNTER 2017-05-03 11:59 | Emergency (ER) | payer MEDICARE, OTHER ==
[~2017-05-03] VITALS: Ht 157.5 cm; Wt 80.0 kg
[~2017-05-03 11:59] MED LIST changes: +BUTA1CAP PO; -CLAR10CA3 PO; -DOXY100C PO; +ESCI20TA PO; +ESTR.625 PO; +KLOR10TA PO; +MECL12.574 PO; -MEDR4PAK PO; +MICA80TA2 PO; -POTA8TAB PO
[2017-05-03 12:10] VITALS: BP 135/75; PULSE 75; RESP 16; TEMP 98.6; O2SAT 93
[2017-05-03 12:40] VITALS: BP 159/86; PULSE 84; RESP 18; O2SAT 96
[2017-05-03] MEDS ORDERED: HYDR1SOL6 PO (12:40)
--- NOTE | 2017-05-03 13:19 | PD ---
HPI Chief Complaint: Fall Time Seen by Provider: 13:00 Travel History International Travel<30 days: No Contact w/Intl Traveler<30days: No Traveled to known affect area: No History of Present Illness HPI 76 years old female complains of left wrist pain, upper and low back pain, right hip pain. Patient states that she fell about 3 weeks ago. Patient denies loss of consciousness. Patient claims of upper back pain and low back pain and right hip pain and left wrist pain. Patient denies any chest pain or shortness of breath. Patient denies abdominal pain. Patient denies any focal weakness or numbness of extremity. PFSH Past Medical History Hx Anticoagulant Therapy: No Arthritis: Yes (RA) Asthma: Yes Blood Disorders: No Anxiety: Yes Depression: Yes Heart Rhythm Problems: No Cardiovascular Problems: No High Cholesterol: No Chemotherapy: No Chest Pain: No Congestive Heart Failure: No COPD: No Cerebrovascular Accident: No Diabetes: No Diminished Hearing: No Fibromyalgia: Yes (OSTEOPOROSIS) Gastrointestinal Disorders: Yes (NAUSEA AND VOMITING TIMES ONE DAY) GERD: Yes Glaucoma: No Genitourinary: No Headaches: Yes Hepatitis: No Hiatal Hernia: No Hypertension: Yes Immune Disorder: No Implanted Vascular Access Dvce: No Musculoskeletal: Yes (FIBROMYALGIA, OSTEOPOROSIS) Neurologic: Yes Psychiatric: Yes Reproductive: No Respiratory: Yes (ASTHMA) Migraines: Yes Radiation Therapy: No Renal Failure: No Seizures: No Sleep Apnea: No Thyroid Disease: No Ulcer: No Tetanus Vaccination: < 5 Years Influenza Vaccination: No ?: Not Past Surgical History Abdominal Surgery: Yes (HYSTERECTOMY CHOLESTECTOMY) Appendectomy: Yes Body Medical Devices: FIBERMYALGIA, OSTEOPOROSIS Cardiac Surgery: No Cholecystectomy: Yes Eye Surgery: Yes (BILATERAL EYES cataract surgery) Genitourinary Surgery: No Gynecologic Surgery: Yes (bladder tuck) Hysterectomy: Yes Neurologic Surgery: No Pacemaker: No Thoracic Surgery: No Other Surgery: Yes Social History Alcohol Use: No Tobacco Use: No Substance Use: No Allergies-Medications (Allergen,Severity, Reaction): Coded Allergies: penicillin G (Verified Allergy, Severe, HIVES, 05/03/17) Reported Meds & Prescriptions Reported Meds & Active Scripts Active Fioricet (Althwcfcyr-Hxafnqoxjgvsb-Udtpaxjv) 50-300-40 Mg Cap 1 Cap PO Q4H PRN Reported Hydrocodon-Acetamin 7.5-325/15 (Hydrocodone/Acetaminophen) 7.5 Mg-325 Mg/15 Ml ( 15 Ml) Solution 7.5-325 Mg PO DIRECTED Nexium (Esomeprazole DR) 40 Mg Capdr 40 Mg PO BID Klor-Con 10 (Potassium Chloride) 10 Meq Tab 10 Meq PO DAILY Premarin (Estrogens Conjugated) 0.625 Mg Tab 0.625 Mg PO DAILY Meclizine (Meclizine HCl) 12.5 Mg Tab 12.5 Mg PO DIRECTED PRN Micardis Hct (Telmisartan-Hydrochlorothiazide) 80-12.5 Mg Tab 1 Tab PO DAILY Lorazepam 1 Mg Tab 1 Mg PO BID PRN Review of Systems General / Constitutional: No: Fever Eyes: No: Visual changes HENT: No: Headaches Cardiovascular: No: Chest Pain or Discomfort Respiratory: No: Shortness of Breath Gastrointestinal: No: Abdominal Pain Genitourinary: No: Dysuria Musculoskeletal: Positive: Pain Skin: No Rash Neurologic: No: Weakness Psychiatric: No: Depression Endocrine: No: Polydipsia Hematologic/Lymphatic: No: Easy Bruising Physical Exam Narrative GENERAL: Well-nourished, well-developed patient. SKIN: Focused skin assessment warm/dry. HEAD: Normocephalic. EYES: No scleral icterus. No injection or drainage. NECK: Supple, trachea midline. No JVD or lymphadenopathy. CARDIOVASCULAR: Regular rate and rhythm without murmurs, gallops, or rubs. RESPIRATORY: Breath sounds equal bilaterally. No accessory muscle use. GASTROINTESTINAL: Abdomen soft, non-tender, nondistended. MUSCULOSKELETAL: No cyanosis, or edema. Patient has moderate tenderness palpation of posterior aspect of right hip joint. Full range of motion the right hip. BACK: Patient has moderate diffuse tenderness over thoracic or lumbar area, without obvious deformity. No CVA tenderness. Neurologic exam normal. Data Data Last Documented VS Vital Signs Date Time Temp Pulse Resp B/P (MAP) Pulse Ox O2 Delivery O2 Flow Rate FiO2 05/03/17 14:25 68 18 135/77 (96) 96 Room Air 05/03/17 12:10 98.6 Orders Orders Hip, Uni(Ap&Lat) W Ap Pelvis (05/03/17 13:12) Wrist, Complete ([id number]) (05/03/17 13:12) Spine, Thoracic-Ap/Lat/Sw(3vw) (05/03/17 13:12) Spine, Lumbar - Ltd (Ap & Lat) (05/03/17 13:12) [facility] Medical Decision Making Medical Screen Exam Complete: Yes Emergency Medical Condition: Yes Interpretation(s) 1435 PM. X-ray left wrist, thoracic lumbar spine, right hip shows no acute bony injury. DJD changes. Differential Diagnosis Differential diagnosis including fracture, dislocation, contusion, strain. Narrative Course 76 years old female with back pain and right hip pain. Status post fall 3 weeks ago. Diagnosis Primary Impression: Contusion of right hip Qualified Codes: S70.01XA - Contusion of right hip, initial encounter Additional Impressions: Left wrist sprain Qualified Codes: S63.502A - Unspecified sprain of left wrist, initial encounter Back strain Qualified Codes: S39.012A - Strain of muscle, fascia and tendon of lower back , initial encounter Patient Instructions: General Instructions Additional Instructions: Follow-up with personal physician orthopedist if persistent problem. Med/Other Pt SpecificInfo: Prescription(s) given Scripts Meloxicam (Mobic) 15 Mg Tab 15 MG PO DAILY for Pain, #14 TAB 0 Refills Prov: Deacon Doe MD 05/03/17 Disposition: 01 DISCHARGE HOME Condition: Stable Deacon Doe MD May 03, 2017 13:19
--- NOTE | 2017-05-03 14:18 | RADRPT ---
EXAM DATE/TIME: 05/03/2017 13:41 [facility] COMPARISON: No previous studies available for comparison. INDICATIONS : Left wrist pain MEDICAL HISTORY : Fibromyalgia SURGICAL HISTORY : Cholecystectomy. Hysterectomy.Appendectomy ENCOUNTER: Initial ACUITY: 3 weeks PAIN SCORE: 10/10 LOCATION: Left lateral wrist FINDINGS: Three view examination of the left wrist demonstrates soft tissue swelling without dislocation, or fr acture. The carpal bones are in normal alignment. The joint spaces are maintained. Bony mineraliza tion is normal. CONCLUSION: 1. Soft tissue and without fracture. Luther Almanza MD on May 03, 2017 at 14:16 Board Certified Radiologist. This report was verified electronically.
--- NOTE | 2017-05-03 14:19 | RADRPT ---
EXAM DATE/TIME: 05/03/2017 13:41 [facility] COMPARISON: No previous studies available for comparison. INDICATIONS : Back pain after fall. MEDICAL HISTORY : Fibromyalgia SURGICAL HISTORY : Cholecystectomy. Hysterectomy.Appendectomy ENCOUNTER: Initial ACUITY: 3 weeks PAIN SCORE: 10/10 LOCATION: Lumbar spine FINDINGS: Two view examination was performed. There are five non-rib bearing vertebral bodies. The vertebral bodies are in normal alignment without evidence of subluxation or scoliosis. Degenerative changes gre atest at T12-L1, L3-4 and L5-S1 levels.. The pedicles are intact. Bony mineralization is normal. N o fracture is identified. CONCLUSION: 1. Degenerative changes. 2. No fracture. Luther Almanza MD on May 03, 2017 at 14:17 Board Certified Radiologist. This report was verified electronically.
--- NOTE | 2017-05-03 14:19 | RADRPT ---
EXAM DATE/TIME: 05/03/2017 13:41 [facility] COMPARISON: No previous studies available for comparison. INDICATIONS : Back pain after fall. MEDICAL HISTORY : Fibromyalgia SURGICAL HISTORY : Cholecystectomy. Hysterectomy.Appendectomy ENCOUNTER: Initial ACUITY: 3 weeks PAIN SCORE: 10/10 LOCATION: Thoracic spine FINDINGS: There is normal alignment of the thoracic vertebral bodies. Vertebral body height is maintained. No evidence of fracture or subluxation. Pedicles are intact at all levels. The mild degenerative ratliff es. Osteopenia. The paravertebral reflections are not thickened. CONCLUSION: Degenerative change without fracture. Osteopenia. Luther Almanza MD on May 03, 2017 at 14:16 Board Certified Radiologist. This report was verified electronically.
--- NOTE | 2017-05-03 14:24 | RADRPT ---
EXAM DATE/TIME: 05/03/2017 13:41 [facility] COMPARISON: No previous studies available for comparison. INDICATIONS : Right hip pain after fall. MEDICAL HISTORY : Fibromyalgia SURGICAL HISTORY : Cholecystectomy. Hysterectomy.Appendectomy ENCOUNTER: Initial ACUITY: 3 weeks PAIN SCORE: 10/10 LOCATION: Right lateral hip FINDINGS: Examination of the right hip was performed with AP Pelvis. The primary and secondary trabecular jesse luz maria of the femoral neck is intact. The hip joint is of normal width without significant sclerosis or bony hypertrophy. The acetabulum is grossly intact. CONCLUSION: No acute fracture right hip. Luther Almanza MD on May 03, 2017 at 14:20 Board Certified Radiologist. This report was verified electronically.
[2017-05-03 14:25] VITALS: BP 135/77; PULSE 68; RESP 18; O2SAT 96
[2017-05-03] MEDS ORDERED: MOBI15TA PO (14:42)
[2017-05-03 15:44] VITALS: BP 125/71
== END 2017-05-03 15:51 | disposition home or self-care (01) ==
LOC: PHED 11:59
DX: S70.01XA Contusion of right hip, initial encounter (principal); S63.502A Unspecified sprain of left wrist, initial encounter; S39.012A Strain of muscle, fascia and tendon of lower back, initial encounter; I10 Essential (primary) hypertension; W19.XXXA Unspecified fall, initial encounter
CPT/HCPCS: 72072; 72100; 73110; 73502; 99284

== ENCOUNTER 2017-06-24 09:56 | Emergency (ER) | payer MEDICARE, OTHER ==
[~2017-06-24] VITALS: Ht 157.5 cm; Wt 80.0 kg
[~2017-06-24 09:56] MED LIST changes: -ESCI20TA PO; +HYDR1SOL6 PO; +MOBI15TA PO
[2017-06-24 09:57] VITALS: BP 149/60; PULSE 86; RESP 14; TEMP 98; O2SAT 98
[2017-06-24] MEDS ORDERED: PROZ20CA11 PO (10:33)
--- NOTE | 2017-06-24 11:08 | PD ---
HPI Chief Complaint: Pain: Acute or Chronic Time Seen by Provider: 10:57 Travel History International Travel<30 days: No Contact w/Intl Traveler<30days: No Traveled to known affect area: No History of Present Illness HPI 76 year female the history of fibromyalgia presents to emergency department left shoulder and left rib pain for 3 days after a mechanical fall. Patient states she landed on her left shoulder and started developing left rib pain shortly afterwards. Patient denies head trauma, loss of consciousness, blurred vision neck pain or back pain. Patient is not on a blood thinner. Patient states that movement increases shoulder pain and she has tried to take hydrocodone without significant relief. Note that patient does have hydrocodone for chronic pain secondary to her fibromyalgia. Patient states her pain is like a "burning sensation". Denies numbness or tingling of the extremities. States her left rib pain feels "numb" but has pain with movement and palpation. Patient denies shortness of breath or chest pain. Denies fever or chills. PFSH Past Medical History Hx Anticoagulant Therapy: No Arthritis: Yes (RA) Asthma: Yes Blood Disorders: No Anxiety: Yes Depression: Yes Heart Rhythm Problems: No Cardiovascular Problems: No High Cholesterol: No Chemotherapy: No Chest Pain: No Congestive Heart Failure: No COPD: No Cerebrovascular Accident: No Diabetes: No Diminished Hearing: No Fibromyalgia: Yes (OSTEOPOROSIS) Gastrointestinal Disorders: Yes (NAUSEA AND VOMITING TIMES ONE DAY) GERD: Yes Glaucoma: No Genitourinary: No Headaches: Yes Hepatitis: No Hiatal Hernia: No Hypertension: Yes Immune Disorder: No Implanted Vascular Access Dvce: No Musculoskeletal: Yes (FIBROMYALGIA, OSTEOPOROSIS) Neurologic: Yes Psychiatric: Yes Reproductive: No Respiratory: Yes (ASTHMA) Migraines: Yes Radiation Therapy: No Renal Failure: No Seizures: No Sleep Apnea: No Thyroid Disease: No Ulcer: No Influenza Vaccination: No Past Surgical History Abdominal Surgery: Yes (HYSTERECTOMY CHOLESTECTOMY) Appendectomy: Yes Body Medical Devices: FIBERMYALGIA, OSTEOPOROSIS Cardiac Surgery: No Cholecystectomy: Yes Eye Surgery: Yes (BILATERAL EYES cataract surgery) Genitourinary Surgery: No Gynecologic Surgery: Yes (bladder tuck) Hysterectomy: Yes Neurologic Surgery: No Pacemaker: No Thoracic Surgery: No Other Surgery: Yes Social History Alcohol Use: No Tobacco Use: No Substance Use: No Allergies-Medications (Allergen,Severity, Reaction): Coded Allergies: naproxen (Verified Allergy, Severe, Bleeding, 06/24/17) penicillin G (Verified Allergy, Severe, HIVES, 06/24/17) Reported Meds & Prescriptions Reported Meds & Active Scripts Active Robaxin (Methocarbamol) 500 Mg Tab 500 Mg PO TID 3 Days Mobic (Meloxicam) 15 Mg Tab 15 Mg PO DAILY Fioricet (Btcvkqvvqk-Fbceoovnyrssx-Qmmjpfwm) 50-300-40 Mg Cap 1 Cap PO Q4H PRN Reported Prozac (Fluoxetine HCl) 20 Mg Cap 20 Mg PO DAILY Hydrocodon-Acetamin 7.5-325/15 (Hydrocodone/Acetaminophen) 7.5 Mg-325 Mg/15 Ml ( 15 Ml) Solution 7.5-325 Mg PO DIRECTED Nexium (Esomeprazole DR) 40 Mg Capdr 40 Mg PO BID Klor-Con 10 (Potassium Chloride) 10 Meq Tab 10 Meq PO DAILY Premarin (Estrogens Conjugated) 0.625 Mg Tab 0.625 Mg PO DAILY Meclizine (Meclizine HCl) 12.5 Mg Tab 12.5 Mg PO DIRECTED PRN Micardis Hct (Telmisartan-Hydrochlorothiazide) 80-12.5 Mg Tab 1 Tab PO DAILY Lorazepam 1 Mg Tab 1 Mg PO BID PRN Review of Systems Except as stated in HPI: all other systems reviewed are Neg Physical Exam Narrative GENERAL: Well developed well-nourished in mild distress SKIN: Focused skin assessment warm/dry. HEAD: Atraumatic. Normocephalic. EYES: Pupils equal and round. No scleral icterus. No injection or drainage. ENT: No nasal bleeding or discharge. Mucous membranes pink and moist. NECK: Trachea midline. No JVD. No lymphadenopathy CARDIOVASCULAR: Regular rate and rhythm. No murmur appreciated. RESPIRATORY: No accessory muscle use. Clear to auscultation. Breath sounds equal bilaterally. GASTROINTESTINAL: Abdomen soft, non-tender, nondistended. Hepatic and splenic margins not palpable. MUSCULOSKELETAL: No obvious deformities. No clubbing. No cyanosis. No edema. left shoulder-TTP of her musculature of shoulder girdle. No deformities or crepitus. No ecchymosis. left chest wall- TTP to left axillary chest wall without crepitus or deformities. NEUROLOGICAL: Awake and alert. No obvious cranial nerve deficits. Motor grossly within normal limits. Normal speech. PSYCHIATRIC: Appropriate mood and affect; insight and judgment normal. Data Data Last Documented VS Vital Signs Date Time Temp Pulse Resp B/P (MAP) Pulse Ox O2 Delivery O2 Flow Rate FiO2 06/24/17 10:28 18 06/24/17 09:57 98.0 86 149/60 (89) 98 Orders Orders Shoulder, Limited(2vws) (06/24/17 ) Chest, Single Ap (06/24/17 ) Ed Discharge Order (06/24/17 12:17) [facility] Medical Decision Making Medical Screen Exam Complete: Yes Emergency Medical Condition: Yes Differential Diagnosis Left shoulder strain versus brain versus fracture Left rib contusion versus fracture versus costochondritis Narrative Course 76 year female the history of fibromyalgia presents to emergency department left shoulder and left rib pain for 3 days after a mechanical fall. Patient states she landed on her left shoulder and started developing left rib pain shortly afterwards. Patient denies head trauma, loss of consciousness, blurred vision neck pain or back pain. Patient is not on a blood thinner. Patient states that movement increases shoulder pain and she has tried to take hydrocodone without significant relief. Note that patient does have hydrocodone for chronic pain secondary to her fibromyalgia. Patient states her pain is like a "burning sensation". Denies numbness or tingling of the extremities. States her left rib pain feels "numb" but has pain with movement and palpation. Patient denies shortness of breath or chest pain. Denies fever or chills. Vital signs stable Physical exam findings consistent with shoulder strain versus fracture. Left rib contusion versus fracture. Last Impressions Shoulder X-Ray 06/24/17 0000 Signed Impressions: Service Date/Time: Saturday, June 24, 2017 11:28 - CONCLUSION: Negative for fracture Colt Norris MD FACR Chest X-Ray 06/24/17 0000 Signed Impressions: Service Date/Time: Saturday, June 24, 2017 11:34 - CONCLUSION: No acute disease. Colt Norris MD FACR Patient has not recurred on at home. Patient be discharged Robaxin with specific instructions to avoid use when out about. Advised that she may use this medication at home and perform range of motion exercises for shoulder. Advises injury may take some time to improve and advised follow-up with primary care physician as soon as possible. Also consider orthopedics for further treatment and evaluation. Diagnosis Primary Impression: Shoulder strain Qualified Codes: S46.912A - Strain of unspecified muscle, fascia and tendon at shoulder and upper arm level, left arm, initial encounter Additional Impression: Rib contusion Qualified Codes: S20.212A - Contusion of left front wall of thorax, initial encounter Referrals: Primary Care Physician Patient Instructions: General Instructions, Rotator Cuff Injury (ED) Additional Instructions: Use ice or heat for symptom relief. Elevate the joint above the heart to reduce swelling. You may use compression with David wrap or similar to reduce swelling. If symptoms persist or worsen, return to the emergency department. Follow up with your primary care physician within 2 days. Scripts Methocarbamol (Robaxin) 500 Mg Tab 500 MG PO TID for Muscle Spasm for 3 Days, TAB 0 Refills Prov: Kelly Asher 06/24/17 Disposition: 01 DISCHARGE HOME Condition: Stable Kelly Asher Jun 24, 2017 11:08
--- NOTE | 2017-06-24 11:49 | RADRPT ---
EXAM DATE/TIME: 06/24/2017 11:28 [facility] COMPARISON: No previous studies available for comparison. INDICATIONS : Pain from fall, extending into left chest and left back. MEDICAL HISTORY : Bursitis. SURGICAL HISTORY : None. ENCOUNTER: Initial ACUITY: 1 day PAIN SCORE: 5/10 LOCATION: Left shoulder. FINDINGS: Two view examination of the left shoulder demonstrates no evidence of fracture or dislocation. The g lenohumeral and acromioclavicular joints are maintained. Bony mineralization is normal. CONCLUSION: Negative for fracture Colt Norris MD FACR on June 24, 2017 at 11:46 Board Certified Radiologist. This report was verified electronically.
--- NOTE | 2017-06-24 11:49 | RADRPT ---
EXAM DATE/TIME: 06/24/2017 11:34 [facility] COMPARISON: CHEST SINGLE AP, March 14, 2017, 15:31. INDICATIONS : Pain from fall radiating from left shoulder. MEDICAL HISTORY : None. SURGICAL HISTORY : None. ENCOUNTER: Initial ACUITY: 1 day PAIN SCORE: 4/10 LOCATION: Left chest FINDINGS: A single view of the chest demonstrates the lungs to be symmetrically aerated without evidence of mas s, infiltrate or effusion. The cardiomediastinal contours are unremarkable. Osseous structures are intact. CONCLUSION: No acute disease. Colt Norris MD FACR on June 24, 2017 at 11:47 Board Certified Radiologist. This report was verified electronically.
[2017-06-24] MEDS ORDERED: ROBA500T PO (12:17)
== END 2017-06-24 12:45 | disposition home or self-care (01) ==
LOC: NEPD 09:56
DX: S46.912A Strain of unspecified muscle, fascia and tendon at shoulder and upper arm level, left arm, initial encounter (principal); S20.212A Contusion of left front wall of thorax, initial encounter; M79.7 Fibromyalgia; M06.9 Rheumatoid arthritis, unspecified; J45.909 Unspecified asthma, uncomplicated; M81.0 Age-related osteoporosis without current pathological fracture; I10 Essential (primary) hypertension; K21.9 Gastro-esophageal reflux disease without esophagitis; W19.XXXA Unspecified fall, initial encounter
CPT/HCPCS: 71010; 73030; 99284